=== PATIENT | male | born 1995 | race Caucasian/White ===

== ENCOUNTER 2021-12-22 06:13 | Emergency (ER) | payer MEDICAID ==
[~2021-12-22] VITALS: Ht 160 cm; Wt 95.3 kg
[2021-12-22 06:16] VITALS: BP 153/102
--- NOTE | 2021-12-22 06:24 | NUR ---
Patient ambulated to bed 11.
[2021-12-22] MEDS ORDERED: NACL 0.9% 1,000 ML IV ONE (06:25)
[2021-12-22] MEDS ORDERED: KETOROLAC 30 MG/ML VIAL IVP ONE (06:25)
--- NOTE | 2021-12-22 06:27 | NUR ---
26 yo/m presents to ED w c/o BL flank pain 10/10 sharp/throbbing radiating to pelvis constant x4 days, +decreased urination. Pt denies any fevers, chills, n/v/d. pmh: HTN allergies: rocephin, ibuprofen
--- NOTE | 2021-12-22 06:32 | NUR ---
Pt reports ibuprofen allergic reacion is reactal bleeding, per ermd pt ok to have toradol ivp.
--- NOTE | 2021-12-22 06:37 | NUR ---
Dr. Salas examining patient.
[2021-12-22] MEDS ORDERED: ACET-8386 PO (06:47)
--- NOTE | 2021-12-22 07:10 | NUR ---
Pt report given to LINSEY LARES. Transfer of care at this time.
--- NOTE | 2021-12-22 07:13 | NUR ---
RECEIVED REPORT FROM LINSEY MONTOYA. ASSUMED CARE AT THIS TIME.
[2021-12-22 08:01] VITALS: BP 163/97
--- NOTE | 2021-12-22 08:01 | NUR ---
IV removed, catheter intact and site benign. Applied folded 4x4 gauze and tape to stop bleeding.
--- NOTE | 2021-12-22 08:01 | NUR ---
Patient discharged with v/s stable. Written and verbal after care instructions ABOUT ACUTE BACK PAIN given and explained. Patient alert, oriented and verbalized understanding of instructions. Ambulatory with steady gait. All questions addressed prior to discharge. ID band removed. Patient advised to follow up with PMD. Rx of NORCO 5-325 given. Patient educated on indication of medication including possible reaction and side effects. Opportunity to ask questions provided and answered.
== END 2021-12-22 08:01 | disposition home or self-care (01) ==
LOC: MED 06:13
DX: M54.9 Dorsalgia, unspecified (principal); R10.9 Unspecified abdominal pain; R39.198 Other difficulties with micturition; I10 Essential (primary) hypertension; Z88.1 Allergy status to other antibiotic agents; Z88.6 Allergy status to analgesic agent; Z90.49 Acquired absence of other specified parts of digestive tract
CPT/HCPCS: 81002; 96361; 96374; 99283; J1885; J7030

== ENCOUNTER 2022-06-17 20:40 | Emergency (ER) | payer MEDICAID ==
[~2022-06-17] VITALS: Ht 160 cm; Wt 104.3 kg
[~2022-06-17 20:40] MED LIST: ACET-8386 PO
[2022-06-17 21:14] VITALS: BP 142/83
--- NOTE | 2022-06-17 21:19 | NUR ---
TO LOBBY FOLLOWING TRIAGE
--- NOTE | 2022-06-17 21:29 | NUR ---
PT AMBULATED TO BED 2
--- NOTE | 2022-06-17 21:30 | NUR ---
SPOKE WITH PATIENT AT BEDSIDE, WHO REPORTS COUGHING, SNEEZING, HEADACHE, AND SORE THROAT SINCE MONDAY. PATIENT STATES THAT HE FEELS LIKE HE WILL PASS OUT WHEN DRIVING. PATIENT REPORTS ALLERGIES TO IBUPROFEN AND ROCEPHIN
[2022-06-17] MEDS ORDERED: AMOXICILLIN 500 MG CAP PO ONE (22:05)
[2022-06-17] MEDS ORDERED: DEC4 PO (22:08)
[2022-06-17] MEDS ORDERED: AMOX1TAB8 PO (22:08)
[2022-06-17] MEDS ORDERED: NAPR-54 PO (22:08)
[2022-06-17 22:32] VITALS: BP 142/83
--- NOTE | 2022-06-17 22:32 | NUR ---
Patient discharged with v/s stable. Written and verbal after care instructions given and explained. Patient alert, oriented and verbalized understanding of instructions. Ambulatory with steady gait. All questions addressed prior to discharge. ID band removed. Patient advised to follow up with PMD. Rx of AMOX-CLAV 875-125MG, DECADRON, AND NAPROXEN. given. Patient educated on indication of medication including possible reaction and side effects. Opportunity to ask questions provided and answered. DX: PHARYNGITIS
== END 2022-06-17 22:32 | disposition home or self-care (01) ==
LOC: MED 20:40
DX: J02.9 Acute pharyngitis, unspecified (principal); R51.9 Headache, unspecified; I10 Essential (primary) hypertension; Z79.891 Long term (current) use of opiate analgesic; Z88.1 Allergy status to other antibiotic agents; Z88.6 Allergy status to analgesic agent
CPT/HCPCS: 99283

== ENCOUNTER 2023-01-05 15:22 | Emergency (ER) | payer MEDICAID ==
[~2023-01-05] VITALS: Ht 162.6 cm; Wt 103.0 kg
[~2023-01-05 15:22] MED LIST changes: -ACET-8386 PO; +ACET-8905 PO; +AMOX1TAB8 PO; +DEC4 PO; +NAPR-54 PO
[2023-01-05 15:29] VITALS: BP 155/122
--- NOTE | 2023-01-05 17:54 | NUR ---
MD PARKER AT BEDSIDE FOR EVALUATION
[2023-01-05] MEDS ORDERED: ONDANSETRON 4 MG ODT PO ONE (17:55)
[2023-01-05] MEDS ORDERED: KETOROLAC 60 MG/2 ML VIAL IM ONE (17:55)
[2023-01-05] MEDS ORDERED: ONDA8TAB87 PO (17:59)
== END 2023-01-05 18:13 | disposition home or self-care (01) ==
LOC: MED 15:22
DX: R10.9 Unspecified abdominal pain (principal); R11.2 Nausea with vomiting, unspecified; I10 Essential (primary) hypertension; F12.90 Cannabis use, unspecified, uncomplicated; Z90.49 Acquired absence of other specified parts of digestive tract; Z79.899 Other long term (current) drug therapy; Z79.1 Long term (current) use of non-steroidal anti-inflammatories (NSAID); Z88.1 Allergy status to other antibiotic agents; Z88.6 Allergy status to analgesic agent
CPT/HCPCS: 96372; 99283; J1885; Q0162

== ENCOUNTER 2023-01-16 13:51 | Emergency (ER) | payer MEDICAID ==
[~2023-01-16] VITALS: Ht 160 cm; Wt 103.9 kg
[~2023-01-16 13:51] MED LIST changes: +ONDA8TAB87 PO
[2023-01-16 14:09] VITALS: BP 153/100; PULSE 91; RESP 16; TEMP 97.9; O2SAT 99
[2023-01-16] MEDS ORDERED: METOCLOPRAMIDE 10 MG/2 ML INJ VIAL IM ONE (15:15)
[2023-01-16] MEDS ORDERED: DEXAMETHASONE 4 MG/ML VIAL PO ONE (15:15)
[2023-01-16] MEDS ORDERED: ACETAMINOPHEN EXTRA STRENGTH 500 MG TAB PO ONE (15:15)
[2023-01-16] MEDS ORDERED: lisinopriL 20 MG TAB PO ONE (15:15)
[2023-01-16] MEDS ORDERED: LISI5TAB18 PO (15:45)
[2023-01-16] MEDS ORDERED: ACET-10509 PO (15:45)
[2023-01-16] MEDS ORDERED: ACET-9496 PO (15:46)
[2023-01-16 15:55] VITALS: BP 139/85; PULSE 76; RESP 17; O2SAT 98
--- NOTE | 2023-01-16 15:55 | NUR ---
Patient discharged with v/s stable. Written and verbal after care instructions given and explained. Patient alert, oriented and verbalized understanding of instructions. Ambulatory with steady gait. All questions addressed prior to discharge. ID band removed. Patient advised to follow up with PMD. Rx of LISINOPRIL, TYLENOL given. Patient educated on indication of medication including possible reaction and side effects. Opportunity to ask questions provided and answered.
== END 2023-01-16 15:55 | disposition home or self-care (01) ==
LOC: MED 13:51
DX: R51.9 Headache, unspecified (principal); I10 Essential (primary) hypertension; Z79.899 Other long term (current) drug therapy; Z88.5 Allergy status to narcotic agent; Z88.8 Allergy status to other drugs, medicaments and biological substances; Z90.49 Acquired absence of other specified parts of digestive tract
CPT/HCPCS: 96372; 99284; J1100; J2765

== ENCOUNTER 2023-01-31 21:40 | Emergency (ER) | payer MEDICAID ==
[~2023-01-31] VITALS: Ht 162.6 cm; Wt 103.0 kg
[~2023-01-31 21:40] MED LIST changes: +ACET-10509 PO; +ACET-9496 PO; +LISI5TAB18 PO
[2023-01-31 22:06] VITALS: BP 162/113; PULSE 106; RESP 16; TEMP 98.4; O2SAT 100
--- NOTE | 2023-01-31 22:13 | NUR ---
pt to lobby
--- NOTE | 2023-02-01 01:44 | NUR ---
PT AMBULATED TO BED, CALL LIGHT W/IN REACH.
--- NOTE | 2023-02-01 01:50 | NUR ---
c/o headache x 1 day. per pt, pmhx hypertension but has not been taking medications x 1 month. allergic to rocephin and ibuprofen.
[2023-02-01] MEDS ORDERED: NACL 0.9% 1,000 ML IV ONE (02:15)
[2023-02-01] MEDS ORDERED: ED NON STOCK ORDER 1 EA MISC IVP ONE (02:15)
[2023-02-01] MEDS ORDERED: diphenhydrAMINE 50 MG/ML VIAL IVP ONE (02:15)
--- NOTE | 2023-02-01 02:22 | NUR ---
pt ambulated to restroom for urine gait steady
--- NOTE | 2023-02-01 02:37 | NUR ---
pt taken to CT
[2023-02-01 02:44] LABS: APPEARANCE,URINE CLEAR (CLEAR); BILIRUBIN,URINE NEGATIVE (NEGATIVE); BLOOD, URINE NEGATIVE (NEGATIVE); COLOR,URINE YELLOW (YELLOW); LEUKOCYTE ESTERASE ,URINE NEGATIVE (NEGATIVE); NITRITE, URINE NEGATIVE (NEGATIVE); UGLUCOSE NEGATIVE (NEGATIVE)
[2023-02-01] MEDS ORDERED: METOCLOPRAMIDE 10 MG/2 ML INJ VIAL ONE (02:52)
[2023-02-01 02:55] LABS: BARBITURATE, URINE NEGATIVE ng/ml (NEG <=200); BENZODIAZEPINE, URINE NEGATIVE ng/mL (NEG <=200); CANNABINOID, URINE NEGATIVE ng/mL (NEG <=50); COCAINE, URINE NEGATIVE ng/mL (NEG <=300); OPIATE, URINE NEGATIVE ng/mL (NEG <=2000); PHENCYCLIDINE SCREEN,URINE NEGATIVE ng/mL (NEG <=25)
--- NOTE | 2023-02-01 03:29 | NUR ---
resting comfortably at this time, rise and fall of chest noted, no s/s distress, no s/s pain or discomfort.
--- NOTE | 2023-02-01 05:01 | NUR ---
resting comfortably, no s/s pain. rise and fall of chest noted.
[2023-02-01] MEDS ORDERED: TRAM-748 PO (08:14)
--- NOTE | 2023-02-01 08:25 | NUR ---
IV removed, catheter intact and site benign. Applied folded 4x4 gauze and tape to stop bleeding.
[2023-02-01 08:34] VITALS: BP 133/88; PULSE 98; RESP 14; TEMP 98; O2SAT 97
== END 2023-02-01 08:34 | disposition home or self-care (01) ==
LOC: MED 21:40
DX: R51.9 Headache, unspecified (principal); I10 Essential (primary) hypertension; Z88.5 Allergy status to narcotic agent; Z88.8 Allergy status to other drugs, medicaments and biological substances; Z79.899 Other long term (current) drug therapy; Z90.49 Acquired absence of other specified parts of digestive tract
CPT/HCPCS: 70450; 80305; 81003; 93005; 96374; 96375; 99285; J1200; J7030; J2765